=== PATIENT | male | born 1940 | race Caucasian/White ===

== ENCOUNTER 2016-09-08 13:44 | Outpatient (CLI) | payer MEDICARE | END 2016-09-08 13:45 | disposition home or self-care (01) | DX: G35 Multiple sclerosis (principal) ==

== ENCOUNTER 2016-09-21 | Outpatient (CLI) | payer MEDICARE | END 2016-09-21 15:53 | disposition critical access hospital (66) | CPT/HCPCS: A0425; A0427 ==

== ENCOUNTER 2016-09-21 16:23 | Emergency (ER) | payer MEDICARE ==
[2016-09-21] MEDS ORDERED: LIDOCAINE 2% URO-JET 5 ML SYRINGE UR ONE (17:44)
[2016-09-21] MEDS ORDERED: TAMSULOSIN 0.4 MG CAPSULE PO STA (18:21)
[2016-09-21] MEDS ORDERED: TAMSULOSIN 0.4 MG CAPSULE ONE (18:24)
== END 2016-09-21 18:43 | disposition home or self-care (01) ==
DX: R33.9 Retention of urine, unspecified (principal); I10 Essential (primary) hypertension
CPT/HCPCS: 51798; 81003; 99283; 99284; A9270

== ENCOUNTER 2017-07-04 13:45 | Outpatient (CLI) | payer MEDICARE ==
[2017-07-04 17:40] LABS: BASOPHILS # (AUTO) 0.1 10^3/uL (0.0-0.1); BASOPHILS % (AUTO) 0.8 %; EOSINOPHILS # (AUTO) 0.4 10^3/uL (0.0-0.7); HCT - HEMATOCRIT 41.3 % (42.0-52.0); HGB - HEMOGLOBIN 13.6 g/dL (14.0-18.0); LYMPHOCYTES # (AUTO) 0.4 10^3/uL (1.5-3.5); LYMPHOCYTES % (AUTO) 4.7 %; MEAN CORPUSCULAR HEMOGLOBIN 31.4 pg (27.0-31.0); MEAN CORPUSCULAR VOLUME 95.3 fL (80.0-94.0); MEAN PLATELET VOLUME 9.9 fL (7.4-11.4); MONOCYTES # (AUTO) 0.6 10^3/uL (0.0-1.0); MONOCYTES % (AUTO) 6.2 %; NEUTROPHILS % (AUTO) 84.3 %; NUCLEATED RED BLOOD CELLS AUTO 0.1 /100WBC; RED BLOOD COUNT 4.33 10^6/uL (4.70-6.10); RED CELL DISTRIBUTION WIDTH 14.4 % (12.0-15.0); UNCORRECTED WHITE BLOOD COUNT 9.5 x10^3/uL; WHITE BLOOD COUNT 9.5 x10^3/uL (4.8-10.8)
[2017-07-04 17:51] LABS: ALBUMIN/GLOBULIN RATIO 1.1 (1.0-2.2); BILIRUBIN,TOTAL 0.7 mg/dL (0.2-1.0); CALCIUM 9.2 mg/dL (8.5-10.3); CREATININE 0.6 mg/dL (0.6-1.2); POTASSIUM 3.6 mmol/L (3.5-5.0); TOTAL PROTEIN 7.5 g/dL (6.7-8.2)
[2017-07-04 18:30] LABS: HEMOGLOBIN A1C 0.64 g/dL
== END 2017-07-04 13:46 ==
LOC: LAB.R 13:45
DX: E35 Disorders of endocrine glands in diseases classified elsewhere (principal); E03.9 Hypothyroidism, unspecified
CPT/HCPCS: 80053; 83036; 84443; 85025